=== PATIENT | male | born 1970 | race Hispanic/Latino ===

== ENCOUNTER 2024-05-27 12:33 | Emergency (ER) | payer OTHER | END 2024-05-27 15:48 | disposition home or self-care (01) | LOC: ERS 12:33 | DX: S93.492A Sprain of other ligament of left ankle, initial encounter (principal); S93.145A Subluxation of metatarsophalangeal joint of left lesser toe(s), initial encounter; W00.0XXA Fall on same level due to ice and snow, initial encounter; Y93.01 Activity, walking, marching and hiking | CPT/HCPCS: 28660; 96372 ==